=== PATIENT | female | born 1935 | race African-American/Black ===

== ENCOUNTER 2016-11-11 10:10 | Emergency (ER) ==
[2016-11-11 10:17] VITALS: BP 120/69; TEMP 98.7; BMI 23.3
--- NOTE | 2016-11-11 10:43 | ED.PDOC ---
General ED Provider: Dr. MARITZA PEDRO Chief Complaint: Foot Pain/Injury Stated Complaint: left foot pain Time Seen by Physician: 10:11 Mode of Arrival: Walk-In Information Source: Patient Exam Limitations: No limitations Primary Care Provider: OBDULIO TAMEZ Nursing and Triage Documentation Reviewed and Agree: Yes Musculoskeletal Complaint Exam - Ankle/Foot Complaint/Exam Location of Injury: Reports: Left, Foot Mechanism of Injury: Reports: No known trauma Onset/Duration: 10:11 am Symptoms Are: Reports: Still present Initial Severity: Moderate Current Severity: Moderate Location: Reports: Discrete Character: Reports: Dull, Aching Alleviating: Reports: Rest, Position Aggravating: Reports: None Able to Bear Weight: Yes Associated Signs and Symptoms: Denies: Swelling, Redness, Bruising, Fever, Weakness, Numbness, Tingling Gout Risk Factors: Reports: None Review of Systems - Review Of Systems Constitutional: Reports: No symptoms Eyes: Reports: No symptoms Ears, Nose, Mouth, Throat: Reports: No symptoms Respiratory: Reports: No symptoms Cardiac: Reports: No symptoms GI: Reports: No symptoms : Reports: No symptoms Musculoskeletal: Reports: Joint pain Skin: Reports: No symptoms Neurological: Reports: No symptoms Endocrine: Reports: No symptoms Hematologic/Lymphatic: Reports: No symptoms All Other Systems: Reviewed and Negative Past Medical History - Past Medical History Previously Healthy: Yes Endocrine: Reports: None Cardiovascular: Reports: None Respiratory: Reports: None Hematological: Reports: None Gastrointestinal: Reports: None Genitourinary: Reports: None Neuro/Psych: Reports: None Musculoskeletal: Reports: None Cancer: Reports: None Last Menstrual Period: menopause - Surgical History General Surgical History: Reports: None - Family History Family History: Reports: None - Social History Smoking Status: Current every day smoker, Light tobacco smoker Hx Substance Use: No Alcohol Screening: None Physical Exam - Physical Exam Appearance: Well-appearing, No pain distress, Well-nourished Eyes: HEAVEN, EOMI, Conjunctiva clear ENT: Ears normal, Nose normal, Oropharynx normal Respiratory: Airway patent, Breath sounds clear, Breath sounds equal, Respirations nonlabored Cardiovascular: RRR, Pulses normal, No rub, No murmur GI/: Soft, Nontender, No masses, Bowel sounds normal, No Organomegaly Musculoskeletal: Normal strength, ROM intact, No edema, No calf tenderness Skin: Warm, Dry, Normal color Neurological: Sensation intact, Motor intact, Reflexes intact, Cranial nerves intact, Alert, Oriented Psychiatric: Affect appropriate, Mood appropriate Critical Care Note - Critical Care Note Total Time (mins): 0 Course - Course Orders, Labs, Meds: Lab Review 11/11/16 10:59 Uric Acid 2.4 Orders Category Date Time Status URIC ACID Stat LAB 11/11/16 10:59 Completed FOOT, LEFT 3 VIEWS Stat RADS 11/11/16 10:24 Completed Vital Signs: Temp Pulse Resp BP Pulse Ox 11/11/16 10:11 98.7 F 89 20 120/69 95 Departure - Departure Time of Disposition: 10:43 Disposition: HOME SELF-CARE Discharge Problem: Foot pain, left Instructions: Arthralgia (ED) Condition: Good Pt referred to PMD for follow-up: No Additional Instructions: Please call your Family Physician as soon as possible to schedule a follow-up appointment. Prescriptions: Hydrocodone/Acetaminophen [[place] 5-325 Tablet] 1 each PO Q6HR PRN #12 tablet PRN Reason: PAIN Allergies/Adverse Reactions: Allergies No Known Allergies Allergy (Unverified 11/11/16 10:19) Home Medications: Ambulatory Orders Gabapentin 100 mg PO DIRECTED 11/11/16 Hydrocodone/Acetaminophen [[place] 5-325 Tablet] 1 each PO Q6HR PRN #12 tablet Disposition Discussed With: Patient
--- NOTE | 2016-11-11 10:46 | DI ---
EXAM: Radiographs, left foot HISTORY: Left foot pain. COMPARISON: None available. TECHNIQUE: Three views. FINDINGS: Bone mineralization is decreased. There is no fracture or dislocation. The joint spaces are maintained. No focal soft tissue abnormality is seen. IMPRESSION: No fracture or dislocation.
== END 2016-11-11 11:36 | disposition home or self-care (01) ==
LOC: ED 10:10
DX: M79.672 Pain in left foot (principal); F17.210 Nicotine dependence, cigarettes, uncomplicated
CPT/HCPCS: 36415; 84550; 99282

== ENCOUNTER 2017-04-01 17:29 | Emergency (ER) ==
[2017-04-01 17:29] VITALS: BMI 23.3
[2017-04-01 17:31] VITALS: BP 127/63; TEMP 98.7
[2017-04-01 17:46] LABS: BASOPHILS % (AUTO) 0.3 % (0.0-3.0); EOSINOPHILS # (AUTO) 0.2 K/ul (0.0-0.7); EOSINOPHILS % (AUTO) 3.3 % (0.0-7.0); HEMATOCRIT 35.9 % (37.0-47.0); HEMOGLOBIN 11.2 g/dl (12.0-16.0); IMMATURE GRANULOCYTE % (AUTO) 0.3 % (0.0-5.0); LYMPHOCYTES # (AUTO) 1.4 K/uL (0.60-3.4); LYMPHOCYTES % (AUTO) 18.9 (10.0-50.0); MEAN CORPUSCULAR HEMOGLOBIN 26.8 pg (27.0-31.0); MEAN CORPUSCULAR HGB CONC 31.2 (31.8-35.4); MEAN CORPUSCULAR VOLUME 85.9 fl (81.0-99.0); MONOCYTES # (AUTO) 0.9 K/uL (0.4-2.0); MONOCYTES % (AUTO) 11.7 (0-10); NEUTROPHILS # (AUTO) 4.8 K/ul (2.0-6.9); NEUTROPHILS % (AUTO) 65.5; PLATELET COUNT 245 10^3/uL (140-440); RED BLOOD COUNT 4.18 10^6/ul (4.20-5.40); WHITE BLOOD COUNT 7.35 K/ul (4.6-10.2)
[2017-04-01] MEDS ORDERED: DUONEB NEB STA (18:04)
[2017-04-01] MEDS ORDERED: DECADRON 4 MG/ML SDV IM STA (18:04)
[2017-04-01 18:05] LABS: ALBUMIN 3.3 g/dL (3.4-5.0); ALBUMIN/GLOBULIN RATIO 0.87; ANION GAP 12.9; BILIRUBIN,TOTAL 0.27 mg/dL (0.00-1.20); BUN/CREATININE RATIO 9.05; CALCIUM 8.4 mg/dL (8.2-10.2); CREATININE 2.43 mg/dL (0.60-1.30); POTASSIUM 4.9 mmol/L (3.5-5.10); TOTAL PROTEIN 7.1 g/dL (5.8-8.1)
--- NOTE | 2017-04-01 18:09 | CT ---
Exam: CT thorax without IV contrast. Clinical indication: Cough. TECHNIQUE: Axial unenhanced CT images of the thorax were obtained followed by coronal and sagittal r eformats. There are no prior studies available for comparison. Findings: There is some early cylindrical bronchiectasis associate with some pulmonary parenchymal scarring wit hin the lingula. There are also some areas of early cylindrical bronchiectasis and scarring within t he inferomedial bilateral lower lobes. 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 The remainder the pulmonary parenchyma is unremarkable. There is no pleural abnormality. There are no enlarged axillary, hilar or mediastinal lymph nodes, by size criteria. There are coronary artery calcifications. There are multiple hepatic cysts the largest is partially exophytic from the left lateral lobe measur ing up to 6.9 cm in diameter. Within the right kidney there is a heterogeneous mass-like area which measures 4.1 x 3.9 cm in diamet er and could represent a complex proteinaceous cyst versus actual renal neoplasm. There are multiple other bilateral simple renal cortical cysts and a small hemorrhagic cyst on the anteroinferior aspec t of the right kidney. The remainder of the visualized portions of the upper abdomen are unremarkabl e. There is a T12 vertebral body compression fracture with approximately 60% loss in vertebral body heig ht, age indeterminate. Impression: 1. Areas of cylindrical bronchiectasis within the bilateral lower lobes and lingula. The 2. Unexpected finding of mass-like area within the right kidney which could represent a complex nikolai l cyst versus a renal neoplasm such as renal cell carcinoma. Suggest further evaluation with a targe crista sonogram to assess for cyst versus solid neoplasm. 3. T12 vertebral body compression fracture, age indeterminate.
--- NOTE | 2017-04-01 18:15 | ED.PDOC ---
General ED Provider: Dr. MARITZA PEDRO Chief Complaint: Cough Stated Complaint: cough Time Seen by Physician: 17:33 (seen with nursing staff) Mode of Arrival: Walk-In Information Source: Patient Exam Limitations: No limitations Primary Care Provider: OBDULIO TAMEZ Nursing and Triage Documentation Reviewed and Agree: Yes Respiratory Complaint Exam - Respiratory Complaint/Exam Onset/Duration: 1 week cough flu like symptoms Symptoms Are: Still present Timing: Constant, Intermittent Initial Severity: Mild Current Severity: Mild Location: Throat, Chest Character: Reports: Non-productive cough Aggravating: Reports: None Associated Signs and Symptoms: Reports: Pleuritic chest pain, URI Related History: Reports: Similar episode History of Healthcare-Acquired Pneumonia: No Related Surgical History: Reports: None Pulmonary Embolism Risk Factors: None Cardiac Risk Factors: Reports: None Pseudomonas Risk Factors: Reports: None Tuberculosis Risk Factors: Reports: None Status Asthmaticus Risk Factors: Reports: None Home Oxygen Use: No Recent Stress Test: No Recent Echo/LV Function: No Current Antibiotic Use: No Current Asthma Medication Use: No Respiratory Distress: None Inadequate Respiratory Effort: No Dysphagia Present: No Stridor Present: No JVD Present: No Accessory Muscle Use: No Retractions: Not Present Diminished Breath Sounds: No Sinus Tenderness: None Grunting Respirations: No Kussmaul Respirations: No Differential Diagnoses: Bronchitis Review of Systems - Review Of Systems Constitutional: Reports: No symptoms Eyes: Reports: No symptoms Ears, Nose, Mouth, Throat: Reports: No symptoms Respiratory: Reports: Cough Cardiac: Reports: No symptoms GI: Reports: No symptoms : Reports: No symptoms Musculoskeletal: Reports: No symptoms Skin: Reports: No symptoms Neurological: Reports: No symptoms Endocrine: Reports: No symptoms Hematologic/Lymphatic: Reports: No symptoms All Other Systems: Reviewed and Negative Past Medical History - Past Medical History Previously Healthy: Yes Endocrine: Reports: None Cardiovascular: Reports: None Respiratory: Reports: None Hematological: Reports: None Gastrointestinal: Reports: None Genitourinary: Reports: None Neuro/Psych: Reports: None Musculoskeletal: Reports: None Cancer: Reports: None Last Menstrual Period: n/a - Surgical History General Surgical History: Reports: None - Family History Family History: Reports: None - Social History Smoking Status: Current every day smoker, Light tobacco smoker Hx Substance Use: No Alcohol Screening: None Physical Exam - Physical Exam Appearance: Well-appearing, No pain distress, Well-nourished Eyes: HEAVEN, EOMI, Conjunctiva clear ENT: Ears normal, Nose normal, Oropharynx normal Respiratory: Rhonchi Cardiovascular: RRR, Pulses normal, No rub, No murmur GI/: Soft, Nontender, No masses, Bowel sounds normal, No Organomegaly Musculoskeletal: Normal strength, ROM intact, No edema, No calf tenderness Skin: Warm, Dry, Normal color Neurological: Sensation intact, Motor intact, Reflexes intact, Cranial nerves intact, Alert, Oriented Psychiatric: Affect appropriate, Mood appropriate Interpretation - Radiology Interpretation Radiology Interpretation By: Radiologist (possible renal mass) Critical Care Note - Critical Care Note Total Time (mins): 0 Course - Course Hematology/Chemistry: 04/01/17 17:40 10 17:40 Orders, Labs, Meds: Lab Review 04/01/17 10 17:40 17:40 WBC 7.35 RBC 4.18 L Hgb 11.2 L Hct 35.9 L MCV 85.9 MCH 26.8 L MCHC 31.2 L RDW Coeff of [place] 15.3 H Plt Count 245 Immature Gran % (Auto) 0.3 Neut % (Auto) 65.5 Lymph % (Auto) 18.9 [place] % (Auto) 11.7 H Eos % (Auto) 3.3 Baso % (Auto) 0.3 Immature Gran # (Auto) 0.0 Neut # 4.8 Lymph # 1.4 [place] # 0.9 Eos # 0.2 Baso # 0.0 Sodium 134 L Potassium 4.9 Chloride 104 Carbon Dioxide 22 L Anion Gap 12.9 BUN 22 H Creatinine 2.43 H Estimated GFR (MDRD) 23.00 BUN/Creatinine Ratio 9.05 Glucose 110 Calcium 8.4 Total Bilirubin 0.27 AST 19 ALT 11 L Alkaline Phosphatase 88 Total Protein 7.1 Albumin 3.3 L Globulin 3.8 Albumin/Globulin Ratio 0.87 Orders Category Date Time Status NEBULIZER TREATMENT Stat CARDIO 04/01/17 18:04 Ordered CBC W/ AUTO DIFF Stat LAB 04/01/17 17:40 Completed COMPREHENSIVE METABOLIC PANEL Stat LAB 04/01/17 17:40 Completed Dexamethasone 4 mg/ml Inj [Decadron 4 mg/ml Sdv] MEDS 04/01/17 18:04 Discontinued 4 mg IM ONCE STA Ipratropium/Albuterol Neb [Duoneb] MEDS 04/01/17 18:04 Discontinued 1 vial NEB ONCE STA CT CHEST W/O CONTRAST Stat RADS 04/01/17 17:35 Completed Medications Discontinued Medications Generic Name Dose Route Start Last Admin Trade Name Domo PRN Reason Stop Dose Admin Albuterol/Ipratropium 1 vial 04/01/17 18:04 Duoneb NEB 04/01/17 18:05 ONCE STA Dexamethasone Sodium Phosphate 4 mg 04/01/17 18:04 Decadron 4 Mg/Ml Sdv IM 04/01/17 18:05 ONCE STA Vital Signs: Temp Pulse Resp BP Pulse Ox 04/01/17 17:29 98.7 F 110 H 20 127/63 88 L Departure - Departure Time of Disposition: 19:00 Disposition: HOME SELF-CARE Discharge Problem: Cough, Renal cyst, Bronchitis Instructions: Acute Bronchitis (ED), Wheezing (ED), How Your Lungs Work (ED), Kidney Cyst (ED) Condition: Good Pt referred to PMD for follow-up: Yes Additional Instructions: Please call your Family Physician as soon as possible to schedule a follow-up appointment.THERE IS CYSTS WHICH RADIOLOGIST THINKS MAY BE CANCER RELATED .YOU MUST SEE YOUR DOCTOR SOON POSSIBLE Allergies/Adverse Reactions: Allergies No Known Allergies Allergy (Verified 04/01/17 17:33) Home Medications: Ambulatory Orders Gabapentin 100 mg PO DIRECTED 11/11/16
[2017-04-01] MEDS ORDERED: ZITHROMAX PO STA (18:18)
[2017-04-01] MEDS ORDERED: ROCEPHIN IM STA (18:19)
[2017-04-01] MEDS ORDERED: LIDOCAINE HCL 1% SDV SUBCUT STA (18:19)
[2017-04-01 18:57] LABS: FLU INTERNAL QC INTERNAL QC VALID; RAPID FLU A NEGATIVE (NEGATIVE); RAPID FLU B NEGATIVE (NEGATIVE)
== END 2017-04-01 19:07 | disposition home or self-care (01) ==
LOC: ED 17:29
DX: J20.9 Acute bronchitis, unspecified (principal); N28.1 Cyst of kidney, acquired; F17.210 Nicotine dependence, cigarettes, uncomplicated
CPT/HCPCS: 36415; 80053; 85025; 87651; 87804; 87880; 94640; 96372; 99283